=== PATIENT | female | born 1995 | race Caucasian/White ===

== ENCOUNTER 2018-01-09 18:47 | Emergency (ER) | payer OTHER ==
[~2018-01-09] VITALS: Ht 165.1 cm; Wt 65.3 kg
== END 2018-01-09 22:50 | disposition home or self-care (01) ==
LOC: ER 18:47
DX: M54.5 Low back pain (principal); M54.16 Radiculopathy, lumbar region

== ENCOUNTER 2019-03-31 13:42 | Outpatient (CLI) | payer OTHER | END 2019-03-31 13:47 | disposition home or self-care (01) | LOC: LAB 13:42 | DX: J11.1 Influenza due to unidentified influenza virus with other respiratory manifestations (principal); R05 Cough ==

== ENCOUNTER 2021-01-26 09:50 | Outpatient (CLI) | payer OTHER | END 2021-01-26 12:07 | disposition home or self-care (01) | LOC: PRENATAL 09:50 | PROVIDERS: ATTEND Obstetrics & Gynecology Maternal & Fetal Medicine | DX: Z36.89 Encounter for other specified antenatal screening (principal); O36.80X1 Pregnancy with inconclusive fetal viability, fetus 1; Z3A.15 15 weeks gestation of pregnancy ==

== ENCOUNTER 2021-03-11 13:04 | Outpatient (CLI) | payer OTHER | END 2021-03-11 14:14 | disposition home or self-care (01) | LOC: PRENATAL 13:04 | PROVIDERS: ATTEND Obstetrics & Gynecology Maternal & Fetal Medicine | DX: O35.0XX1 Maternal care for (suspected) central nervous system malformation in fetus, fetus 1 (principal); O35.3XX2 Maternal care for (suspected) damage to fetus from viral disease in mother, fetus 2; O98.512 Other viral diseases complicating pregnancy, second trimester; Z36.89 Encounter for other specified antenatal screening; Z3A.21 21 weeks gestation of pregnancy ==

== ENCOUNTER 2021-05-30 14:31 | Outpatient (CLI) | payer OTHER | END 2021-05-30 14:57 | disposition home or self-care (01) | LOC: PRENATAL 14:31 | PROVIDERS: ATTEND Obstetrics & Gynecology Maternal & Fetal Medicine | DX: O26.849 Uterine size-date discrepancy, unspecified trimester (principal); O36.8199 Decreased fetal movements, unspecified trimester, other fetus; Z3A.32 32 weeks gestation of pregnancy ==

== ENCOUNTER 2021-07-14 07:28 | Inpatient (IN) | payer OTHER ==
[~2021-07-14] VITALS: Ht 165.1 cm; Wt 3.6 kg
[2021-07-14] MEDS ORDERED: PRENATAL TABLE1 EAC3 PO (08:34)
[2021-07-17] MEDS ORDERED: Tylenol #3 PO (11:31)
[2021-07-17] MEDS ORDERED: NAPR500T14 PO (11:31)
== END 2021-07-17 12:08 | disposition home or self-care (01) | DRG 788 ==
LOC: LDR 07:28 → O/R 10:43 → SURG-SUITE 11:51
PROVIDERS: ADMIT Obstetrics & Gynecology; ATTEND Obstetrics & Gynecology
PROC: 4A1HXCZ Monitoring of Products of Conception, Cardiac Rate, External Approach (ICD-10-PCS; 2021-07-14)
PROC: 10D00Z1 Extraction of Products of Conception, Low, Open Approach (ICD-10-PCS; principal; 2021-07-14 10:00)
DX: O32.1XX0 Maternal care for breech presentation, not applicable or unspecified (principal); Z3A.39 39 weeks gestation of pregnancy; Z37.0 Single live birth; Z20.822 Contact with and (suspected) exposure to COVID-19